=== PATIENT | female | born 1970 | race Caucasian/White ===

== ENCOUNTER → 2016-08-22 | Outpatient (CLI) | payer BC ==
[2016-08-22 16:37] LABS: Basophils # (A) 0.1 k/uL (0-0.2); Basophils % (A) 1 %; CH 32.7; CHCM 35.9; Eosinophils # (A) 0.1 k/uL (0-0.7); Eosinophils % (A) 1 %; HCT 40.4 % (34.0-46.0); HDW 2.62; HGB 14.1 gm/dL (11.4-16.0); Luc # (Auto) 0.25; Luc % (Auto) 4; Lymphocytes # (A) 1.7 k/uL (1.0-4.8); Lymphocytes % (A) 24 %; MCH 31.9 pg (25.0-35.0); MCHC 34.9 g/dL (31.0-37.0); MCV 91.5 fL (80.0-100.0); Mean Platelet Volume 7.1; Monocytes # (A) 0.5 k/uL (0-1.0); Monocytes % (A) 7 %; Neutrophils # (A) 4.5 k/uL (1.3-7.7); Neutrophils % (A) 64 %; RBC 4.42 m/uL (3.80-5.40)
[2016-08-22 16:39] LABS: Anion Gap 10 mmol/L; Blood Urea Nitrogen 23 mg/dL (7-17); Carbon Dioxide 31 mmol/L (22-30); Chloride 99 mmol/L (98-107); Glucose 87 mg/dL (74-99); Non-African American GFR(MDRD) >60 (>60 ml/min/1.73 sqM); Potassium 4.1 mmol/L (3.5-5.1); Sodium 140 mmol/L (137-145)
== END | disposition home or self-care (01) ==
LOC: LABPAT 16:01
PROVIDERS: ATTEND Obstetrics & Gynecology
DX: Z01.818 Encounter for other preprocedural examination (principal); D25.9 Leiomyoma of uterus, unspecified; N92.1 Excessive and frequent menstruation with irregular cycle; N94.10 Unspecified dyspareunia; R31.0 Gross hematuria
CPT/HCPCS: 80051; 82565; 82947; 84520; 85025; 86850; 86900; 86901; 87077; 87086; 87186

== ENCOUNTER 2016-08-26 06:07 | Observation (INO) | payer BC ==
[2016-08-22 09:02] VITALS: BMI 20.3
--- NOTE | 2016-08-25 08:29 | HP ---
DATE OF ADMISSION: 08/26/2016 This is a 46-year-old white female, 2, para 2- 0-0-2, who presents with a history of frequent heavy painful menses. She has a known history of small fibroids in the uterus. Fibroids are noted sonographically, largest 4.7 cm. Patient has had a previous endometrial ablation for menstrual control, but at this time presents with wishes for vaginal hysterectomy. Patient does have pain with deep penetration at the time of intercourse, dysmenorrhea is moderate. There are no issues with bowel or bladder. Past medical history is significant for broken wrist in 2010. PAST SURGICAL HISTORY: section in 2000, hysteroscopy with NovaSure ablation in 2011, wrist surgery on the right. CURRENT MEDICATIONS: 1. Biotin daily. 2. Multivitamin daily. 3. Vitamin B12 daily. 4. Xljh-bxm-gluxnff water pill daily. ALLERGIES: None known. FAMILY HISTORY: Significant for breast cancer in paternal grandmother. REPRODUCTIVE HISTORY: Patient had a vaginal delivery of 7-pound 6-ounce infant in 1997, in 2000, low transverse. SOCIAL HISTORY: The patient is , she is employed at [employer]. She has never been a smoker and denies alcohol or drug abuse. On exam, this is a pleasant white female, 5 feet 5-1/2 inches, 132 pounds, BMI 21, blood pressure 110/70. Patient is afebrile and vital signs are stable. HEENT exam reveals no thyromegaly, no cervical lymphadenopathy, good range of motion in the neck, normal dentition. Chest is clear to auscultation in all rivera anteriorly and posteriorly. Cardiac exam reveals regular rate and rhythm with no murmur, click or rub. Breasts are bilaterally symmetric to inspection with no skin dimpling, nipple discharge, axillary adenopathy or discernible lesions or masses. Abdomen is soft and nontender, active bowel sounds, no hernias noted. Extremities reveal no edema, good range of motion, good peripheral pulses. On external genitalia examination, the tissues are normal, well estrogenized and symmetric. The cervix is multiparous. Pap smear is up to date and normal. Uterus is approximately 12 weeks' size clinically, bulky irregular shape, adnexa are negative to palpation bilaterally. There is no notable cystocele or rectocele. Rectal exam reveals good sphincter tone, FIT negative stool. Neurologic exam is fully intact. Judgment and insight normal, mood and affect also appropriate, oriented x3. IMPRESSION: Increasing issues with fibroid uterus, dyspareunia, menorrhagia. Previous ablation, patient now wishing vaginal hysterectomy. PLAN: We have reviewed the risks, benefits, and alternatives of this surgery. We have discussed abdominal hysterectomy, da Shelia assisted hysterectomy, and straight vaginal hysterectomy. The risk of bleeding, infection, perforation or damage to bowel, bladder, ureters, or indeed any pelvic or abdominal organs have all been discussed. Questions answered, ACOG pamphlet has been given to the patient which she has reviewed in detail. I believe Katina understands our discussion with no further reservation or question.
[~2016-08-26 06:07] MED LIST: DEXAMETHASONE SOD PHOSPHATE 10 MG/ML 1 ML VIAL IV ONE; HYDROmorphone 1 MG/ML 1 ML SYRINGE IVP PRN; ONDANSETRON 4 MG/2 ML VIAL IVP ONE; ceFAZolin 2 GM in SODIUM CHLORIDE 0.9% 100 ML IVPB ONE
[2016-08-26] MEDS: LACTATED RINGERS 1,000 ML IV SCH ×2 (06:35→17:10)
[2016-08-26] MEDS ORDERED: LIDOCAINE 1% 20 ML VIAL (10MG/ML) FOR IV START INTRADERMA ONE ×2 (06:35)
[2016-08-26] MEDS ORDERED: MIDAZOLAM 2 MG/2 ML VIAL ONE (07:41)
[2016-08-26] MEDS ORDERED: MORPHINE SULFATE (PF) 0.3 MG/0.3 ML SYR ONE (07:41)
[2016-08-26] MEDS ORDERED: fentaNYL (PF) 50 MCG/ML 2 ML AMP ONE (07:41)
[2016-08-26] MEDS ORDERED: VASOPRESSIN 20 UNIT/ML 1 ML VIAL SQ ONE ×2 (07:48→07:56)
[2016-08-26] MEDS ORDERED: BACITRACIN 500 UNIT/GM OINT 28.4 GM TUBE TOPICAL ONE ×2 (07:51→08:41)
[2016-08-26] MEDS ORDERED: LACTATED RINGERS 1,000 ML IV ONE ×4 (08:22→09:47)
[2016-08-26] MEDS ORDERED: NALOXONE 0.4 MG/ML 1 ML VIAL IV PRN (08:24)
[2016-08-26] MEDS ORDERED: ONDANSETRON 4 MG/2 ML VIAL IVP PRN ×2 (08:24→09:22)
[2016-08-26] MEDS ORDERED: diphenhydrAMINE 50 MG/ML 1 ML VIAL IVP PRN ×2 (08:24→09:22)
[2016-08-26] MEDS ORDERED: MORPHINE SULFATE 4 MG/ML SYRINGE IVP PRN (08:24)
[2016-08-26] MEDS ORDERED: ZOLPIDEM 5 MG TAB PO PRN (09:22)
[2016-08-26] MEDS ORDERED: KETOROLAC 30 MG/ML 1 ML VIAL IVP PRN (09:22)
[2016-08-26] MEDS ORDERED: METOCLOPRAMIDE 5 MG/ML 2 ML VIAL IVP PRN (09:22)
[2016-08-26] MEDS ORDERED: Acetaminophen-Codeine 300-30mg TAB PO PRN (09:22)
--- NOTE | 2016-08-26 09:22 | P.OP ---
Date of Procedure: 08/26/16 Preoperative Diagnosis: Enlarged fibroid uterus, menometrorrhagia, dyspareunia. Postoperative Diagnosis: Same, normal-appearing ovaries Procedure(s) Performed: Total hysterectomy Anesthesia: spinal Surgeon: Anel Cespedes Pillow Agent #1: Shey Fregoso Estimated Blood Loss (ml): 100 IV fluids (ml): 1,100 Urine output (ml): 100 Pathology: other (Cervix and uterus) Condition: stable Disposition: PACU Description of Procedure: Patient is brought to the operating suite where a spinal with Duramorph is placed per the anesthesia team. She is placed in the dorsal lithotomy position. The perineal body, cervix, vagina are all prepped and draped in the usual sterile fashion. The appropriate timeout is performed to assure proper patient and procedural identification. Antibiotics are given. Beta hCG is negative. Weighted speculum was placed into the vagina and the bladder is drained with a red Hernandez catheter for approximately 100 mL of clear yellow urine. A lip of the cervix is grasped with a double-tooth tenaculum and the cervix is injected circumferentially with a dilute Pitressin solution. A hughes blade scalpel is used circumferentially to incise the mucosa with V like positioning in the back. Sponge rolled finger is used to sweep the mucosa from the underlying fascial plane, at all times bladder is Well from the operative field to avoid bladder and/or ureteral injury. Peritoneum is entered at 6:00 and suture tied with 2-0 Vicryl, the large billed speculum is then placed into the peritoneal cavity. Uterosacral cardinal ligaments are identified, clamped cut and held with 0 Vicryl suture laterally. Uterine vasculature is identified, clamped cut and suture ligated. 2 additional pedicles are taken superior to the vessels. Again the bladder swept well from the operative field at all times. The anterior peritoneum was entered and the uterus is "walked out" posteriorly. Anya clamps are used across the final pedicles, and the specimen is removed. The pedicles are suture tied with 0 Vicryl suture, flashed, and retied for excellent hemostasis. A sponge stick is then used to visualize the ovaries which appeared normal bilaterally and therefore left in situ per the patient's wishes. Are reexamined and noted to be hemostatically intact. The speculum is replaced. The 2-0 Vicryl suture is brought around in a pursestring fashion to close the peritoneum. The uterosacral cardinal ligaments are brought across to incorporate the opposite ligament as well as vaginal mucosa. 2 additional iphuzf-pt-nkxek sutures are used on the vaginal mucosa for final cuff closure. Hemostasis is excellent. Conley is noted to be draining clear urine. All sponge needle and enhancement counts are correct at the end of the procedure. Patient is brought back to the recovery room in very good condition. Stable vital signs are noted, pulse 82, blood pressure 101/71, 98% O2 saturation.
[2016-08-26] MEDS: KETOROLAC 30 MG/ML 1 ML VIAL IVP PRN ×2 (11:23→18:40)
[2016-08-27] MEDS: KETOROLAC 30 MG/ML 1 ML VIAL IVP PRN (04:07)
--- NOTE | 2016-08-27 07:44 | P.DS ---
Providers Date of admission: 08/27/16 00:29 Expected date of discharge: 08/27/16 Attending physician: Anel Cespedes Primary care physician: Brittney Greenwood [facility] Course: This is a 46-year-old female who presented with a history of menometrorrhagia, dyspareunia, and enlarging fibroid uterus. Clinically the uterus was 12-14 weeks in size. Previous endometrial ablation did not palliate the patient's symptoms, after thorough discussion she elected to proceed with vaginal hysterectomy. Please see my admitting history and physical for details. Patient underwent vaginal hysterectomy with a spinal with Duramorph under my care yesterday. She did very well intraoperatively. The ovaries appeared normal and therefore left in situ bilaterally. Please see dictated operative note for full details. This morning the patient is doing well. She is voiding, ambulating and passing flatus without difficulty. Vital signs are stable and she is afebrile. Extremities are negative for edema. Patient is tolerating regular diet, and has good pain control. She is judged to be in very good condition for discharge home. Patient is being discharged home this morning in very good condition. She will follow-up with me in the office in 2 weeks. I have reminded her no intercourse , tampons or douching. She will use rhzn-hba-[id number] ibuprofen products as needed for pain, 200 mg Motrin pills, 3 every 6 hours as needed. I have asked her to call me with any fevers shakes or chills, bright red vaginal bleeding, with any pain not alleviated by qyeu-qpr-vobvdrv products, or indeed with any concerns. Patient Condition at Discharge: Good Plan - Discharge Summary Discharge Medication List Triamterene-Hctz 37.5-25Mg [Dyazide 37.5-25 Capsule] 1 cap PO DAILY 08/22/16 [ History] Follow up Appointment(s)/Referral(s): Anel Cespedes MD [STAFF PHYSICIAN] - 2 Weeks Discharge Disposition: HOME SELF-CARE
[2016-08-27] MEDS ORDERED: ACETAMINOPHEN TAB 325 MG TAB PO PRN (09:23)
[2016-08-27 10:15] VITALS: BP 113/70; PULSE 97; RESP 16; TEMP 98.2
--- NOTE | 2016-08-27 12:06 | P.PN ---
Progress Note - Text 0729 Anesthesia POD 1. Patient is status post vaginal hysterectomy under spinal anesthesia with intra-thecal preservative free morphine he 100 g. Mild pruritus, good post-op analgesia requiring only Toradol 30 mg at 4 AM this morning, and no headache or other complications.
== END 2016-08-27 10:01 | disposition home or self-care (01) ==
LOC: OR 06:07 → 6PED 08:52 → OR 08-27 00:29
PROVIDERS: ADMIT Obstetrics & Gynecology; ATTEND Obstetrics & Gynecology
DX: D25.2 Subserosal leiomyoma of uterus (principal); Z80.3 Family history of malignant neoplasm of breast; N92.1 Excessive and frequent menstruation with irregular cycle; N94.10 Unspecified dyspareunia; L29.9 Pruritus, unspecified
CPT/HCPCS: 58260; 96361; 96374; 81025; 88307; G0378; J2250; J1100; J0690; J2405; J2274; J3010; J1885 ×2; 86850; 86900; 86901

== ENCOUNTER 2016-08-30 11:09 | Emergency (ER) | payer BC ==
[2016-08-30 11:24] VITALS: RESP 18
[2016-08-30] MEDS ORDERED: SODIUM CHLORIDE 0.9% 1,000 ML IV ONE (12:32)
[2016-08-30] MEDS ORDERED: KETOROLAC 30 MG/ML 1 ML VIAL IVP STA (12:57)
[2016-08-30] MEDS ORDERED: MORPHINE SULFATE 4 MG/ML SYRINGE IVP STA (12:57)
[2016-08-30] MEDS ORDERED: diphenhydrAMINE 50 MG/ML 1 ML VIAL IVP STA (12:57)
--- NOTE | 2016-08-30 13:00 | ED ---
General Adult HPI - General Chief complaint: Headache Stated complaint: DR CESPEDES PATIENT FOR BLOODPATCH Time Seen by Provider: 08/30/16 12:11 Source: patient, RN notes reviewed, old records reviewed Mode of arrival: ambulatory Limitations: no limitations - History of Present Illness Initial comments: This a 46-year-old female ER prevention of headache, post-lumbar puncture headache after hysterectomy. Patient sent in by Dr. Evans receive blood.. Anesthesia is Ryan and emergency room to evaluate patient, patient denies any other symptoms. This headache is worse with position - Related Data Home Medications Medication Instructions Recorded Confirmed Triamterene-Hctz 37.5-25Mg 1 cap PO DAILY 08/22/16 08/30/16 [Dyazide 37.5-25 Capsule] Cephalexin [Keflex] 500 mg PO Q8H 08/30/16 08/30/16 Previous Rx's Medication Instructions Recorded Acetaminophen with Codeine 1 tab PO Q4H PRN #20 tab 08/30/16 [Tylenol w/codeine #3] Allergies Allergy/AdvReac Type Severity Reaction Status Date / Time No Known Allergies Allergy Verified 08/30/16 12:38 Review of Systems ROS Statement: Those systems with pertinent positive or pertinent negative responses have been documented in the HPI. ROS Other: All systems not noted in ROS Statement are negative. Past Medical History Past Medical History: No Reported History History of Any Multi-Drug Resistant Organisms: None Reported Past Surgical History: Section, Hysterectomy Past Psychological History: No Psychological Hx Reported Smoking Status: Never smoker Past Alcohol Use History: None Reported Past Drug Use History: None Reported General Exam Limitations: no limitations General appearance: alert, in no apparent distress Head exam: Present: atraumatic, normocephalic, normal inspection Eye exam: Present: normal appearance, PERRL, EOMI. Absent: scleral icterus, conjunctival injection, periorbital swelling ENT exam: Present: normal exam, mucous membranes moist Neck exam: Present: normal inspection. Absent: tenderness, meningismus, lymphadenopathy Respiratory exam: Present: normal lung sounds bilaterally. Absent: respiratory distress, wheezes, rales, rhonchi, stridor Cardiovascular Exam: Present: regular rate, normal rhythm, normal heart sounds. Absent: systolic murmur, diastolic murmur, rubs, gallop, clicks GI/Abdominal exam: Present: soft, normal bowel sounds. Absent: distended, tenderness, guarding, rebound, rigid Extremities exam: Present: normal inspection, full ROM, normal capillary refill. Absent: tenderness, pedal edema, joint swelling, calf tenderness Back exam: Present: normal inspection Neurological exam: Present: alert, oriented X3, CN II-XII intact Psychiatric exam: Present: normal affect, normal mood Skin exam: Present: warm, dry, intact, normal color. Absent: rash Course Vital Signs 08/30/16 11:21 Temperature 97.8 F Pulse Rate 110 H Respiratory 18 Rate Blood Pressure 128/68 O2 Sat by Pulse 98 Oximetry - Reevaluation(s) Reevaluation #1: 08/30/16 12:59 anesthesiology is in the ER evaluating patient at this time Medical Decision Making - Medical Decision Making 46 female in the ER for evaluation she did ER for evaluation regarding headache , post-lumbar puncture, spinal headache. Patient's headache is improved, she received a blood patch in the ER by , will follow Dr Cespedes Disposition Clinical Impression: Headache following lumbar puncture Disposition: HOME SELF-CARE Condition: Good Instructions: Acute Headache (ED) Prescriptions: Acetaminophen with Codeine [Tylenol w/codeine #3] 1 tab PO Q4H PRN #20 tab PRN Reason: Pain Referrals: Brittney Roman III, MD [Primary Care Provider] - 1-2 days
[2016-08-30 13:16] VITALS: BP 101/62; PULSE 66; TEMP 97.9
== END 2016-08-30 13:30 | disposition home or self-care (01) ==
LOC: EC 11:09
DX: G97.1 Other reaction to spinal and lumbar puncture (principal); Z79.899 Other long term (current) drug therapy; Z90.710 Acquired absence of both cervix and uterus; Z53.20 Procedure and treatment not carried out because of patient's decision for unspecified reasons
CPT/HCPCS: 99283; 96374; 96361; J1885

== ENCOUNTER → 2016-09-16 | Outpatient (CLI) | payer BC ==
--- NOTE | 2016-08-30 12:33 | P.CON ---
Consult Note - . Assessment/Plan:: epidural blood patch performed at the request of dr duggan; sterile technique followed; 20 cc of blood autologous injected at lumbar 2 and lumbar 3 interspace ; local infiltration of skin performed and patient tolerated the procedure well. no sedatio given ; position lateral decubitus
--- NOTE | 2016-09-18 11:08 | MM ---
Reason for exam: screening (asymptomatic). Last mammogram was performed 1 year and 6 months ago. History: Family history of breast cancer in paternal grandmother. Physical Findings: A clinical breast exam by your physician is recommended on an annual basis and results should be correlated with mammographic findings. MG 3D Screening Mammo W/Cad Bilateral CC and MLO view(s) were taken. Prior study comparison: March 21, 2015, bilateral MG 3d screening mammo w/cad. October 04, 2013, bilateral MG screening mammo w CAD. The breast tissue is heterogeneously dense. This may lower the sensitivity of mammography. No significant changes when compared with prior studies. ASSESSMENT: Benign, BI-RAD 2 RECOMMENDATION: Routine screening mammogram of both breasts in 1 year.
== END | disposition home or self-care (01) ==
LOC: RADMAMWWP 10:01
PROVIDERS: ATTEND Obstetrics & Gynecology
DX: Z12.31 Encounter for screening mammogram for malignant neoplasm of breast (principal)
CPT/HCPCS: 77063; G0202

== ENCOUNTER → 2017-10-08 | Outpatient (CLI) | payer BC ==
--- NOTE | 2017-10-09 10:01 | MM ---
Reason for exam: screening (asymptomatic). Last mammogram was performed 1 year and 1 month ago. History: Family history of breast cancer in paternal grandmother. Physical Findings: A clinical breast exam by your physician is recommended on an annual basis and results should be correlated with mammographic findings. MG 3D Screening Mammo W/Cad Bilateral CC and MLO view(s) were taken. Prior study comparison: September 16, 2016, bilateral MG 3d screening mammo w/cad. March 21, 2015, bilateral MG 3d screening mammo w/cad. The breast tissue is heterogeneously dense. This may lower the sensitivity of mammography. Focal asymmetry lower inner quadrant right breast 4-6cm from nipple. This finding is changed when compared with previous exams. ASSESSMENT: Incomplete: need additional imaging evaluation, BI-RAD 0 RECOMMENDATION: Special view mammogram of the right breast. If lesion persists on supplemental views, image directed ultrasound is recommended. [facility] will attempt to contact patient to return for supplemental views and ultrasound if indicated.
== END | disposition home or self-care (01) ==
LOC: RADMAMWWP 09:59
PROVIDERS: ATTEND Obstetrics & Gynecology
DX: Z12.31 Encounter for screening mammogram for malignant neoplasm of breast (principal); Z80.3 Family history of malignant neoplasm of breast
CPT/HCPCS: 77063; 77067

== ENCOUNTER → 2017-10-20 | Outpatient (CLI) | payer BC ==
--- NOTE | 2017-10-20 09:02 | MM ---
Reason for exam: additional evaluation requested from abnormal screening. Last mammogram was performed less than 1 month ago. History: Family history of breast cancer in paternal grandmother. Physical Findings: Nurse did not find any significant physical abnormalities on exam. MG 3D Work Up W/Cad RT Spot compression CC, spot compression MLO, and ML view(s) were taken of the right breast. Prior study comparison: October 08, 2017, bilateral MG 3d screening mammo w/cad. September 16, 2016, bilateral MG 3d screening mammo w/cad. The breast tissue is heterogeneously dense. This may lower the sensitivity of mammography. No suspicious abnormality. Stable inferior right breast asymmetry back to 2014. The focal asymmetry lower inner quadrant of the right improves on additional views and appears as fibroglandular tissue. These results were verbally communicated with the patient and result sheet given to the patient on 10/20/17. ASSESSMENT: Benign, BI-RAD 2 RECOMMENDATION: Return to routine screening mammogram schedule for both breasts.
== END | disposition home or self-care (01) ==
LOC: RADMAMWWP 08:17
PROVIDERS: ATTEND Obstetrics & Gynecology
DX: R92.8 Other abnormal and inconclusive findings on diagnostic imaging of breast (principal)
CPT/HCPCS: 77061; 77065

== ENCOUNTER → 2019-01-06 | Outpatient (CLI) | payer BC ==
--- NOTE | 2019-01-07 11:40 | MM ---
Reason for exam: screening (asymptomatic). Last mammogram was performed 1 year and 3 months ago. History: Family history of breast cancer in paternal grandmother. Physical Findings: A clinical breast exam by your physician is recommended on an annual basis and results should be correlated with mammographic findings. MG 3D Screening Mammo W/Cad Bilateral CC and MLO view(s) were taken. Prior study comparison: October 20, 2017, right breast MG 3d work up w/cad RT. October 08, 2017, bilateral MG 3d screening mammo w/cad. The breast tissue is heterogeneously dense. This may lower the sensitivity of mammography. There is no discrete abnormality. No significant changes when compared with prior studies. ASSESSMENT: Negative, BI-RAD 1 RECOMMENDATION: Routine screening mammogram of both breasts in 1 year.
== END | disposition home or self-care (01) ==
LOC: RADMAMWWP 09:35
PROVIDERS: ATTEND Obstetrics & Gynecology
DX: Z12.31 Encounter for screening mammogram for malignant neoplasm of breast (principal); Z80.3 Family history of malignant neoplasm of breast
CPT/HCPCS: 77063; 77067

== ENCOUNTER → 2019-01-14 | Outpatient (CLI) | payer BC ==
--- NOTE | 2019-01-14 11:50 | FL ---
EXAMINATION TYPE: FL barium swallow DATE OF EXAM: 01/14/2019 COMPARISON: NONE HISTORY: Dysphasia and acid reflux TECHNIQUE: Double air-contrast technique through the esophagus FINDINGS: Fluoroscopy time: 1 minute 16 seconds Images: 15 Esophagus dilates to normal caliber has normal contour to the gastroesophageal junction. Gastroesopha geal junction opens to normal caliber. There is incomplete stripping of the esophageal bolus in the horizontal drinking position. Secondary tertiary contractions are not clearly identified. No hiatal hernia is evident. Some reflux was eviden t during this exam. IMPRESSION: 1. Gastroesophageal reflux. 2. Weak stripping of the bolus in the horizontal drinking position.
== END | disposition home or self-care (01) ==
LOC: RADUSWWP 08:58
PROVIDERS: ATTEND Otolaryngology
DX: K21.9 Gastro-esophageal reflux disease without esophagitis (principal)
CPT/HCPCS: 74220

== ENCOUNTER 2019-01-20 10:59 | Day surgery (SDC) | payer BC ==
[2019-01-18 15:27] VITALS: BMI 22.2
[~2019-01-20 10:59] MED LIST changes: -DEXAMETHASONE SOD PHOSPHATE 10 MG/ML 1 ML VIAL IV ONE; -HYDROmorphone 1 MG/ML 1 ML SYRINGE IVP PRN; +LACTATED RINGERS 1,000 ML IV SCH; +LIDOCAINE 1% 20 ML VIAL (10MG/ML) FOR IV START INTRADERMA PRN; -ONDANSETRON 4 MG/2 ML VIAL IVP ONE; -ceFAZolin 2 GM in SODIUM CHLORIDE 0.9% 100 ML IVPB ONE
[2019-01-20 11:22] VITALS: RESP 16; TEMP 97.4
[2019-01-20] MEDS ORDERED: LIDOCAINE 1% INJ 10MG/ML (20 ML MDV) ONE (11:48)
[2019-01-20] MEDS ORDERED: PROPOFOL 10 MG/ML 20 ML VIAL IV ONE (11:48)
--- NOTE | 2019-01-20 12:00 | P.PCN ---
Date of Procedure: 01/20/19 Procedure(s) Performed: BRIEF HISTORY: Patient is a 40-year-old, pleasant, female, scheduled for an upper endoscopy as a part of evaluation of intermittent dysphagia to solids for the last 2-3 years duration. She also has heartburn for the last 1 month and was started on Prilosec 20 mg daily and feeling much better.. PROCEDURE PERFORMED: Esophagogastroduodenoscopy with biopsy. PREOPERATIVE DIAGNOSIS: GERD/intermittent dysphagia to solids. IV sedation per anesthesia. PROCEDURE: After informed consent was obtained, the patient was brought into the endoscopy unit. IV sedation was administered by Anesthesia under continuous monitoring. Initially the Olympus GIF-140 video endoscope was inserted into the mouth. Esophagus intubated without any difficulty. It was gradually advanced into the stomach and duodenum and carefully examined. The bulb and the second part of the duodenum appeared normal. The scope at this time was withdrawn to the stomach, adequately insufflated with air, and upon careful examination, mucosa of the antrum, had mild gastritis and biopsies were done from this area. The body, cardia and the fundus appeared normal. The scope was then withdrawn into the esophagus. The GE junction was located at 39 cm from the incisors. The esophagus appeared normal. There were no erosions or ulcerations seen , biopsies were done from the distal esophagus to rule out eosinophilic esophagitis and the patient tolerated the procedure well. IMPRESSION: 1. Normal-appearing esophagus with no evidence of esophagitis or esophageal stricture. Status post multiple biopsies to rule out eosinophilic esophagitis 2. Mild antral gastritis. RECOMMENDATIONS: The findings of this examination were discussed with the patient as well as a family. She was advised to follow with the biopsy results. She will continue with Prilosec 20 mg daily and follow antireflux measures..
[2019-01-20 12:34] VITALS: BP 94/63; PULSE 66
== END 2019-01-20 12:39 | disposition home or self-care (01) ==
LOC: ORWHC2ENDO 10:59
PROVIDERS: ATTEND Internal Medicine Gastroenterology
DX: K29.50 Unspecified chronic gastritis without bleeding (principal); K21.0 Gastro-esophageal reflux disease with esophagitis; Z79.899 Other long term (current) drug therapy
CPT/HCPCS: 88305; 43239; J2001; J2704

== ENCOUNTER → 2020-04-05 | Outpatient (CLI) | payer BC ==
--- NOTE | 2020-04-06 14:39 | MM ---
Reason for exam: screening (asymptomatic). Last mammogram was performed 1 year and 3 months ago. History: Family history of breast cancer in paternal grandmother. Physical Findings: A clinical breast exam by your physician is recommended on an annual basis and results should be correlated with mammographic findings. MG 3D Screening Mammo W/Cad Bilateral CC and MLO view(s) were taken. Prior study comparison: January 06, 2019, bilateral MG 3d screening mammo w/cad. October 20, 2017, right breast MG 3d work up w/cad RT. The breast tissue is heterogeneously dense. This may lower the sensitivity of mammography. No significant changes when compared with prior studies. ASSESSMENT: Benign, BI-RAD 2 RECOMMENDATION: Routine screening mammogram of both breasts in 1 year.
== END | disposition home or self-care (01) ==
LOC: RADMAMWWP 08:18
PROVIDERS: ATTEND Obstetrics & Gynecology
DX: Z12.31 Encounter for screening mammogram for malignant neoplasm of breast (principal); Z80.3 Family history of malignant neoplasm of breast
CPT/HCPCS: 77063; 77067

== ENCOUNTER 2021-03-01 10:50 | Day surgery (SDC) | payer BC ==
[2021-03-01 12:37] VITALS: RESP 16; TEMP 97.2
[2021-03-01] MEDS ORDERED: LACTATED RINGERS 1,000 ML IV ONE (12:41)
[2021-03-01] MEDS ORDERED: LIDOCAINE 1% INJ 10MG/ML (20 ML MDV) ONE (13:22)
[2021-03-01] MEDS ORDERED: PROPOFOL 10 MG/ML 20 ML VIAL IV ONE (13:22)
--- NOTE | 2021-03-01 13:39 | P.PCN ---
Date of Procedure: 03/01/21 Procedure(s) Performed: BRIEF HISTORY: Patient is a 50-year-old pleasant 8 female scheduled for an elective colonoscopy as a part of screening for colorectal neoplasia. PROCEDURE PERFORMED: Colonoscopy. PREOPERATIVE DIAGNOSIS: Screening for colon cancer. IV sedation per Anesthesia. PROCEDURE: After informed consent was obtained, the patient, was brought into the endoscopy unit. IV sedation was administered by Anesthesia under continuous monitoring. Digital rectal examination was normal. Initially the Olympus CF-160 flexible video colonoscope was then inserted in the rectum, gradually advanced into the cecum without any difficulty. Careful examination was performed as the scope was gradually being withdrawn. Ileocecal valve and the appendiceal orifice were visualized and appeared normal. Prep was excellent. Mucosa of the cecum, ascending colon, transverse colon, descending colon, sigmoid colon, and rectum appeared normal. Retroflexion was performed in the rectum and no lesions were seen. The patient tolerated the procedure well. IMPRESSION: Normal-appearing colon from rectum to cecum with no evidence of colon rectal neoplasia. RECOMMENDATIONS: Findings of this examination were discussed with the patient surveillance of family. She was advised to have a repeat screening colonoscopy in 10 years.
[2021-03-01 14:04] VITALS: BP 107/68; PULSE 71
== END 2021-03-01 14:25 | disposition home or self-care (01) ==
LOC: ORWHC2ENDO 10:50
PROVIDERS: ATTEND Internal Medicine Gastroenterology
DX: Z12.11 Encounter for screening for malignant neoplasm of colon (principal)
CPT/HCPCS: 45378; J2001; J2704

== ENCOUNTER → 2021-04-18 | Outpatient (CLI) | payer BC, OTHER ==
--- NOTE | 2021-04-22 11:22 | MM ---
Reason for exam: screening (asymptomatic). Last mammogram was performed 1 year ago. History: Family history of breast cancer in paternal grandmother. Taking progesterone for 3 months. Physical Findings: A clinical breast exam by your physician is recommended on an annual basis and results should be correlated with mammographic findings. MG 3D Screening Mammo W/Cad Bilateral CC and MLO view(s) were taken. Prior study comparison: April 05, 2020, bilateral MG 3d screening mammo w/cad. January 06, 2019, bilateral MG 3d screening mammo w/cad. The breast tissue is heterogeneously dense. This may lower the sensitivity of mammography. There is chronic nodularity bilaterally. No significant changes when compared with prior studies. ASSESSMENT: Benign, BI-RAD 2 RECOMMENDATION: Routine screening mammogram of both breasts in 1 year. Patient should continue monthly self breast exams. A negative report should not preclude additional follow up of suspicious palpable abnormalities.
== END | disposition home or self-care (01) ==
LOC: RADMAMWWP 10:55
PROVIDERS: ATTEND Obstetrics & Gynecology
DX: Z12.31 Encounter for screening mammogram for malignant neoplasm of breast (principal); Z80.3 Family history of malignant neoplasm of breast
CPT/HCPCS: 77063; 77067

== ENCOUNTER → 2022-05-22 | Outpatient (CLI) | payer BC, OTHER ==
--- NOTE | 2022-05-23 06:38 | MM ---
Reason for Exam: Screening (asymptomatic). Last mammogram was performed 1 year(s) and 2 month(s) ago. Patient History: Menarche at age 18. First Full-Term at age 25. Hysterectomy at age 49. Progesterone for 3 months. Paternal grandmother had breast cancer. Risk Values: Estefany 5 year model risk: 1.1%. NCI Lifetime model risk: 8.8%. Prior Study Comparison: 01/06/2019 Bilateral Screening Mammogram, [facility]. 04/05/2020 Bilateral Screening Mammogram, [facility]. 04/18/2021 Bilateral Screening Mammogram, [facility]. Tissue Density: The breast tissue is extremely dense which could obscure a lesion on mammography. Findings: Analyzed By CAD. There is no suspicious new group of microcalcifications or new suspicious mass in either breast. Overall Assessment: Negative, BI-RAD 1 Management: Screening Mammogram of both breasts in 1 year. Some advise bilateral breast ultrasound surveillance in patients with background extremely dense tissue. A clinical breast exam by your physician is recommended on an annual basis and results should be correlated with mammographic findings. Electronically signed and approved by: Carmelo Garcia M.D.
== END | disposition home or self-care (01) ==
LOC: RADMAMWWP 13:51
PROVIDERS: ATTEND Obstetrics & Gynecology
DX: Z12.31 Encounter for screening mammogram for malignant neoplasm of breast (principal)
CPT/HCPCS: 77063; 77067

== ENCOUNTER → 2023-07-14 | Outpatient (CLI) | payer BC, OTHER ==
--- NOTE | 2023-07-16 22:42 | MM ---
Reason for Exam: Screening (asymptomatic). Last mammogram was performed 1 year(s) and 1 month(s) ago. Patient History: Menarche at age 18. First Full-Term at age 25. Hysterectomy at age 49. Patient has history of breast feeding. Progesterone for 3 months. Paternal grandmother had breast cancer. Risk Values: Estefany 5 year model risk: 1.1%. NCI Lifetime model risk: 8.6%. Prior Study Comparison: 04/05/2020 Bilateral Screening Mammogram, [facility]. 04/18/2021 Bilateral Screening Mammogram, [facility]. 05/22/2022 Bilateral MG 3D screening mammo w/cad, [facility]. Tissue Density: The breasts are heterogeneously dense, which may obscure small masses. Findings: Analyzed By CAD. The pattern is symmetrical. No significant interval change. No suspicious groups of microcalcifications, spiculated or lobular masses, architectural distortion or other secondary signs of malignancy are mammographically apparent. Overall Assessment: Benign, BI-RAD 2 Management: Screening Mammogram of both breasts in 1 year. A negative mammogram report should not preclude additional follow up of suspicious palpable abnormalities. Patient should continue monthly self breast exam. A clinical breast exam by your physician is recommended on an annual basis and results should be correlated with mammographic findings. Electronically signed and approved by: Reggie Aldana D.O. Radiologis
== END | disposition home or self-care (01) ==
LOC: RADMAMWWP 15:42
PROVIDERS: ATTEND Obstetrics & Gynecology
DX: Z12.31 Encounter for screening mammogram for malignant neoplasm of breast (principal); Z80.3 Family history of malignant neoplasm of breast
CPT/HCPCS: 77067

== ENCOUNTER → 2024-11-10 | Outpatient (CLI) | payer BC, OTHER ==
--- NOTE | 2024-11-10 08:16 | MM ---
Reason for Exam: Screening (asymptomatic). Last mammogram was performed 1 year(s) and 4 month(s) ago. Patient History: Menarche at age 18. First Full-Term at age 25. Hysterectomy at age 49. Patient has history of breast feeding. Progesterone for 3 months. Paternal grandmother had breast cancer. Risk Values: Estefany 5 year model risk: 1.2%. NCI Lifetime model risk: 8.5%. Prior Study Comparison: 04/18/2021 Bilateral Screening Mammogram, [facility]. 05/22/2022 Bilateral MG 3D screening mammo w/cad, [facility]. 07/14/2023 Bilateral MG screening mammo w CAD, [facility]. Tissue Density: The breasts are heterogeneously dense, which may obscure small masses. Findings: Analyzed By CAD. Right breast: Asymmetry right breast MLO view middle depth 7 cm from the nipple measuring up to 9 mm. Finding may have been obscured on prior imaging. Left breast: There is no suspicious group of microcalcifications or new suspicious mass. Overall Assessment: Incomplete: need additional imaging evaluation, BI-RAD 0 Management: Diagnostic Mammogram of the right breast. Spot compression imaging with 3-D of the right MLO view. Possible ultrasound. [facility] will attempt to contact patient to return for supplemental views and ultrasound if indicated. Patient should continue monthly self-breast exams. A clinical breast exam by your physician is recommended on an annual basis. This exam should not preclude additional follow-up of suspicious palpable abnormalities. Note on Estefany scores and lifetime risk: 1. A Estefany score greater than 3% is considered moderate risk. If this is the case, consider specialist referral to assess eligibility for a risk reducing agent. 2. If overall lifetime risk for the development of breast cancer is 20% or higher, the patient may qualify for future screening with alternating mammogram and breast MRI. [facility], , 11/10/2024 8:13 AM. Electronically signed and approved by: Devaughn Calderón DO
== END | disposition home or self-care (01) ==
LOC: RADMAMWWP 07:21
PROVIDERS: ATTEND Obstetrics & Gynecology
DX: Z12.31 Encounter for screening mammogram for malignant neoplasm of breast (principal); N95.1 Menopausal and female climacteric states; R92.333 Mammographic heterogeneous density, bilateral breasts; Z80.3 Family history of malignant neoplasm of breast
CPT/HCPCS: 77063; 77067

== ENCOUNTER → 2024-11-17 | Outpatient (CLI) | payer BC, OTHER ==
--- NOTE | 2024-11-17 08:09 | MM ---
Reason for Exam: Additional evaluation requested from abnormal screening. Last screening mammogram was performed less than 1 month ago. Patient History: Menarche at age 18. First Full-Term at age 25. Hysterectomy at age 49. Patient has history of breast feeding. Progesterone for 3 months. Paternal grandmother had breast cancer. Risk Values: Estefany 5 year model risk: 1.2%. NCI Lifetime model risk: 8.5%. Prior Study Comparison: 10/20/2017 Right Diagnostic Mammogram, [facility]. 05/22/2022 Bilateral MG 3D screening mammo w/cad, [facility]. 07/14/2023 Bilateral MG screening mammo w CAD, [facility]. 11/10/2024 Bilateral MG 3D screening mammo w/cad, [facility]. Tissue Density: Right: The breasts are heterogeneously dense, which may obscure small masses. Findings: Analyzed By CAD. 9 mm circumscribed nodularity upper outer quadrant becomes much less defined on additional views given low density appearance but appears to persist. This may represent an underlying cyst. Further ultrasound evaluation recommended. Overall Assessment: Incomplete: need additional imaging evaluation, BI-RAD 0 Management: Diagnostic Breast Ultrasound of the right breast. [facility], , 11/17/2024 8:05 AM. Electronically signed and approved by: Thomas Vang M.D. Radiologist
--- NOTE | 2024-11-17 09:30 | USB ---
Reason for Exam: Additional evaluation requested from abnormal screening. Patient History: Menarche at age 18. First Full-Term at age 25. Hysterectomy at age 49. Patient has history of breast feeding. Progesterone for 3 months. Paternal grandmother had breast cancer. Risk Values: Estefany 5 year model risk: 1.2%. NCI Lifetime model risk: 8.5%. Technique: Method: Targeted. Prior Study Comparison: 05/22/2022 Bilateral MG 3D screening mammo w/cad, [facility]. 07/14/2023 Bilateral MG screening mammo w CAD, [facility]. 11/10/2024 Bilateral MG 3D screening mammo w/cad, [facility]. Findings: The lateral section of the breast of the right breast, the axilla of the right breast and the retroareolar of the right breast were scanned. Targeted ultrasound upper outer aspect 10:00 to 11 including scanning of the subareolar region and axilla. At the 10:00 position, 7 cm from the nipple, embedded within dense tissue, there is a circumscribed oval hypoechoic area with through-transmission measuring 9 x 9 x 7 mm. Possible mammographic correlate. Suspect either a debris-filled cyst or small fibroadenoma. At the 11:00 position, 7 cm from the nipple, a second smaller, similar area is noted measuring 7 x 5 x 4 mm. Both of these can be reassessed at follow-up. No other solid or cystic lesion or axillary adenopathy. Overall Assessment: Probably benign, BI-RAD 3 Management: Diagnostic Mammogram of the right breast in 6 months. Diagnostic Breast Ultrasound of the right breast in 6 months. A clinical breast exam by your physician is recommended on an annual basis and results should be correlated with mammographic findings. This exam should not preclude additional follow-up of suspicious palpable abnormalities. Results were given to the patient verbally at the time of exam. [facility], , 11/17/2024 9:25 AM. Electronically signed and approved by: Thomas Vang M.D. Radiologist
== END | disposition home or self-care (01) ==
LOC: RADMAMWWP 07:30
PROVIDERS: ATTEND Obstetrics & Gynecology
DX: R92.8 Other abnormal and inconclusive findings on diagnostic imaging of breast (principal); R92.331 Mammographic heterogeneous density, right breast; Z80.3 Family history of malignant neoplasm of breast
CPT/HCPCS: 77061; 77065